=== PATIENT | female | born 1995 | race Hispanic/Latino ===

== ENCOUNTER 2016-11-15 14:59 | Emergency (ER) | payer OTHER ==
[2016-11-15] MEDS ORDERED: Lidocaine 1% 20 ML MDV INJECT ONE (15:21)
[2016-11-15] MEDS ORDERED: Diphtheria,Pertussis(Acell),Tetanus Vaccine 0.5 ML Syringe IM ONE (15:34)
--- NOTE | 2016-11-15 15:34 | EDM.PDOC ---
ED HPI GENERAL MEDICAL PROBLEM - General Chief Complaint: Laceration Stated Complaint: CUT FINGER ON LT HAND Time Seen by Provider: 11/15/16 15:20 Source of Information: Reports: Patient History Limitations: Reports: No Limitations - History of Present Illness INITIAL COMMENTS - FREE TEXT/NARRATIVE: HISTORY AND PHYSICAL: History of present illness: [Patient comes to the emergency room complaining of lacerations to her left middle finger. 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 Bled quite a bit at the time but stopped prior to coming to the emergency room. She cannot recall the date of her last tetanus shot.] She presents with her who helps to interpret. Review of systems: As per history of present illness and below otherwise all systems reviewed and negative. Past medical history: As per history of present illness and as reviewed below otherwise noncontributory. Surgical history: As per history of present illness and as reviewed below otherwise noncontributory. Social history: No reported history of drug or alcohol abuse. Family history: As per history of present illness and as reviewed below otherwise noncontributory. Physical exam: HEENT: Atraumatic, normocephalic. Extremities: 1 cm and 1-1/2 cm laceration to the distal phalanx of her left middle finger. Half centimeter laceration to the lateral aspect of her fingernail, no nail involvement. Is bleeding a small amount from the area. Neurovascular unremarkable. Neuro: Awake, alert, oriented. Motor and sensory unremarkable throughout. Exam nonfocal. Impression: [Laceration left middle finger] Plan: [Adacel given in the ER. See procedure note. Return to ER in 7 days for suture removal. Cephalexin 500 mg 3 times a day 10 days 0 refills.] Definitive disposition and diagnosis as appropriate pending reevaluation and review of above. Left Hand Pain Score (Numeric/FACES): 1 - Related Data Allergies Allergy/AdvReac Type Severity Reaction Status Date / Time No Known Allergies Allergy Verified 12/07/15 21:21 Home Meds: Home Meds . [No Known Home Meds] 12/07/15 [History] Past Medical History - Past Health History Medical/Surgical History: Denies Medical/Surgical History HEENT History: Reports: None Cardiovascular History: Reports: None Respiratory History: Reports: None Gastrointestinal History: Reports: None Genitourinary History: Reports: None [employer] History: Reports: Musculoskeletal History: Reports: None Neurological History: Reports: None Psychiatric History: Reports: None Endocrine/Metabolic History: Reports: None Hematologic History: Reports: None Immunologic History: Reports: None Oncologic (Cancer) History: Reports: None Dermatologic History: Reports: None - Infectious Disease History Infectious Disease History: Reports: None - Past Surgical History GI Surgical History: Reports: Appendectomy, Hernia, Inguinal Social & Family History - Family History Family Medical History: Noncontributory - Tobacco Use Smoking Status *Q: Never Smoker Second Hand Smoke Exposure: No - Caffeine Use Caffeine Use: Reports: Coffee - Recreational Drug Use Recreational Drug Use: No ED ROS GENERAL - Review of Systems Review Of Systems: ROS reveals no pertinent complaints other than HPI. ED EXAM, SKIN/RASH Exam: See Below ED SKIN PROCEDURES - Laceration/Wound Repair Left Middle Finger Lac/Wound length In cm: 1.5 Appearance: Subcutaneous Distal NVT: Neuro & Vascular Intact Anesthetic Type: Local Local Anesthesia - Lidocaine (Xylocaine): 1% Plain Local Anesthetic Volume: 4cc Skin Prep: Chlorhexidine (Hibiciens), Providone-Iodine (Betadine), Saline, Sterile Drape Closed with: Sutures Suture Size: 4-0 # of Sutures: 9 Suture Type: Nylon Sterile Dressing Applied: Nurse Tetanus Status Addressed: Yes Complications: No Course - Vital Signs Last Recorded V/S: Last Vital Signs Temp 96.9 F 11/15/16 15:30 Pulse 66 11/15/16 16:53 Resp 18 11/15/16 15:30 BP 111/67 11/15/16 16:53 Pulse Ox 97 11/15/16 15:30 - Orders/Labs/Meds Orders: Active Orders 24 hr Category Date Time Status Vaccines to be Administered [RC] PER UNIT ROUTINE Care 11/15/16 15:34 Active Meds: Medications Discontinued Medications Generic Name Dose Route Start Last Admin Trade Name Mauricioq PRN Reason Stop Dose Admin Bacitracin 1 dose 11/15/16 16:30 11/15/16 16:37 Bacitracin Oint 1 Gm TOP 11/15/16 16:31 1 dose ONETIME ONE Administration Diphtheria/Tetanus/Acell Pertussis 0.5 ml 11/15/16 15:34 11/15/16 15:42 Adacel IM 09/28/17 15:35 0.5 ml .ONCE ONE Administration Lidocaine HCl 20 ml 11/15/16 15:21 11/15/16 15:32 Xylocaine 1% INJECT 11/15/16 15:22 20 ml ONETIME ONE Administration Departure - Departure Time of Disposition: 16:40 Disposition: Home, Self-Care 01 Condition: Good Clinical Impression: Laceration - Discharge Information Instructions: Laceration Care, Adult, [id number] Referrals: PCP,None [Primary Care Provider] - Forms: ED Department Discharge Additional Instructions: The following information is given to patients seen in the emergency department who are being discharged to home. This information is to outline your options for follow-up care. We provide all patients seen in our emergency department with a follow-up referral. The need for follow-up, as well as the timing and circumstances, are variable depending upon the specifics of your emergency department visit. If you don't have a primary care physician on staff, we will provide you with a referral. We always advise you to contact your personal physician following an emergency department visit to inform them of the circumstance of the visit and for follow-up with them and/or the need for any referrals to a consulting specialist. The emergency department will also refer you to a specialist when appropriate. This referral assures that you have the opportunity for follow-up care with a specialist. All of these measure are taken in an effort to provide you with optimal care, which includes your follow-up. Under all circumstances we always encourage you to contact your private physician who remains a resource for coordinating your care. When calling for follow-up care, please make the office aware that this follow-up is from your recent emergency room visit. If for any reason you are refused follow-up, please contact the [facility] emergency department at and asked to speak to the emergency department charge nurse. [facility] [address] [place] [id number] Follow-up with your primary care provider in 48-72 hours. Take antibiotic as prescribed. Return to ER as needed as discussed. - My Orders Last 24 Hours: My Active Orders 11/15/16 15:34 Vaccines to be Administered [RC] PER UNIT ROUTINE - Assessment/Plan Last 24 Hours: My Active Orders 11/15/16 15:34 Vaccines to be Administered [RC] PER UNIT ROUTINE
[2016-11-15] MEDS ORDERED: Bacitracin Oint 1 GM U/D Packet TOP ONE (16:30)
[2016-11-15 16:57] VITALS: BP 111/67
== END 2016-11-15 16:53 | disposition home or self-care (01) ==
LOC: MW.ED 14:59
DX: S61.213A Laceration without foreign body of left middle finger without damage to nail, initial encounter (principal); Z23 Encounter for immunization; W29.0XXA Contact with powered kitchen appliance, initial encounter; Y92.511 Restaurant or cafe as the place of occurrence of the external cause
CPT/HCPCS: 12001; 90471; 90715; 99283; 99283-25

== ENCOUNTER 2016-11-22 18:51 | Emergency (ER) | payer MEDICAID, OTHER ==
[2016-11-22 20:36] VITALS: BP 124/65
== END 2016-11-22 19:20 | disposition left against medical advice (07) ==
LOC: MW.ED 18:51
DX: Z53.21 Procedure and treatment not carried out due to patient leaving prior to being seen by health care provider (principal)

== ENCOUNTER 2018-05-12 15:10 | Emergency (ER) | payer SELFPAY | END 2018-05-12 15:51 | disposition left against medical advice (07) | LOC: MW.ED 15:10 | DX: Z53.21 Procedure and treatment not carried out due to patient leaving prior to being seen by health care provider (principal) ==

== ENCOUNTER 2020-12-07 00:19 | Inpatient (IN) | payer OTHER ==
[2020-12-07] MEDS ORDERED: Carboprost Tromethamine 250 MCG/1 ML Amp IM PRN (00:25)
[2020-12-07] MEDS ORDERED: Tranexamic Acid 1,000 MG in Sodium Chloride 0.9% 100 ML IV PRN (00:25)
[2020-12-07] MEDS ORDERED: Water For Irrigation,Sterile 1,000 ML Container IRR PRN (00:25)
[2020-12-07] MEDS ORDERED: Terbutaline 1 MG/ML SDV SUBCUT PRN (00:25)
[2020-12-07] MEDS ORDERED: Sodium Chloride 0.9% 10 ML SDV IV PRN (00:25)
[2020-12-07] MEDS ORDERED: Sodium Chloride 0.9% 10 ML Syringe FLUSH PRN (00:25)
[2020-12-07] MEDS ORDERED: Nalbuphine 10 MG/1 ML Vial IVPUSH PRN (00:25)
[2020-12-07] MEDS ORDERED: Methylergonovine 0.2 MG/1 ML Amp IM PRN (00:25)
[2020-12-07] MEDS ORDERED: Butorphanol 1 MG/ML SDV IVPUSH PRN (00:25)
[2020-12-07] MEDS ORDERED: Lidocaine 1% 50 ML MDV INJECT PRN (00:25)
[2020-12-07] MEDS ORDERED: Ondansetron 4 MG/2 ML SDV IVPUSH PRN (00:25)
[2020-12-07] MEDS ORDERED: Sodium Chloride 0.9% 2.5 ML Syringe FLUSH PRN (00:25)
[2020-12-07] MEDS ORDERED: Misoprostol 200 MCG Tab PO PRN (00:25)
[2020-12-07] MEDS ORDERED: Oxytocin/0.9 % Sodium Chloride 30 UNIT/500 ML BAG IV SCH ×2 (00:30)
[2020-12-07] MEDS: Lactated Ringers 1,000 ML IV SCH ×4 (00:52→21:30)
[2020-12-07] MEDS ORDERED: Misoprostol 25 MCG (1/4 of 100 MCG) Tab PO PRN (01:00)
[2020-12-07] MEDS ORDERED: Misoprostol 25 MCG (1/4 of 100 MCG) Tab VAG PRN ×2 (01:00→05:00)
[2020-12-07] MEDS: Misoprostol 25 MCG (1/4 of 100 MCG) Tab PO PRN ×2 (08:37→12:35)
--- NOTE | 2020-12-07 08:55 | PCM.LDHP ---
L&D History of Present Illness - General Date of Service: 12/07/20 Admit Problem/Dx: Patient Status Order with Admit Dx/Problem 12/07/20 00:25 Patient Status [ADT] Routine Admission Diagnosis/Problem Admission Diagnosis/Problem 12/07/20 08:50 Nidia is a 25 yo at 39+6 weeks gestation (TREVOR(LMP) 12/08/2020) that presents to L&D today for elective induction of labor. Patient seen in office 12/06/2020, RBAs of IOL and mode of cervical ripening (cytotec) discussed in office, consents signed. Reports adequate movement. Denies painful contractions, LOF, joe vaginal bleeding at this time. B pos, RI, GBS neg. EFW via [place] 7+ lbs. Pertinent medical history includes: h/o GDM in prior . NKDA. Medications: PNV daily, ondansetron PRN. Patient has no other complaints or concerns at this time. Source of Information: Patient History Limitations: Reports: No Limitations - History of Present Illness Improves with: Reports: None Worsens with: Reports: None Associated Symptoms: Reports: N - Related Data Allergies/Adverse Reactions: Allergies Allergy/AdvReac Type Severity Reaction Status Date / Time No Known Allergies Allergy Verified 12/07/20 00:24 Home Medications: Home Meds . [No Known Home Meds] 12/07/15 [History] Past Medical History - Past Health History Medical/Surgical History: Denies Medical/Surgical History HEENT History: Reports: None Cardiovascular History: Reports: None Respiratory History: Reports: None Gastrointestinal History: Reports: None Genitourinary History: Reports: None [employer] History: Reports: : 2 Para: 1 Musculoskeletal History: Reports: None Neurological History: Reports: None Psychiatric History: Reports: Depression, Other (See Below) Other Psychiatric History: hx of cutting self Endocrine/Metabolic History: Reports: Diabetes, Gestational (Prior ), Obesity/BMI 30+, Other (See Below) Other Endocrine/Metabolic History: GDM with first Hematologic History: Reports: None Immunologic History: Reports: None Oncologic (Cancer) History: Reports: None Dermatologic History: Reports: None - Infectious Disease History Infectious Disease History: Reports: None - Past Surgical History Head Surgeries/Procedures: Reports: None HEENT Surgical History: Reports: None Cardiovascular Surgical History: Reports: None GI Surgical History: Reports: Appendectomy, Hernia, Inguinal Female Surgical History: Reports: None Endocrine Surgical History: Reports: None Social & Family History - Family History Family Medical History: No Pertinent Family History - Tobacco Use Tobacco Use Status *Q: Never Tobacco User Second Hand Smoke Exposure: No - Caffeine Use Caffeine Use: Reports: Coffee, Tea - Alcohol Use Alcohol Use History: No - Recreational Drug Use Recreational Drug Use: No H&P Review of Systems - Review of Systems: Review Of Systems: Comprehensive ROS is negative, except as noted in HPI. General: Reports: No Symptoms HEENT: Reports: No Symptoms Pulmonary: Reports: No Symptoms Cardiovascular: Reports: No Symptoms Gastrointestinal: Reports: No Symptoms Genitourinary: Reports: No Symptoms Musculoskeletal: Reports: No Symptoms Skin: Reports: No Symptoms Psychiatric: Reports: No Symptoms Neurological: Reports: No Symptoms Hematologic/Lymphatic: Reports: No Symptoms Immunologic: Reports: No Symptoms L&D Exam - Exam Exam: See Below - Vital Signs Vital Signs: Last Vital Signs Temp 98.2 F 12/07/20 07:29 Pulse Resp 18 12/07/20 07:29 BP Pulse Ox VSS, afebrile. See flowsheet. Weight: 236 lb - OB Specific Fundal Height In cm: 39 Contraction Duration (sec): 40-60 Contraction Frequency (min): 2-4 Contraction Intensity: Mild Movement: Active Heart Tones: Present Heart Tones per Min: 120 Heart Rate (FHR) Variability: Moderate (6-25 bpm) Presentation: Vertex - Lezama Score Lezama Score Cervix Position: Posterior Lezama Score Consistency: Medium Lezama Score Effacement: 51-70% Lezama Score Dilation: 1-2 cm Lezama Score Infant's Station: -2 Lezama Score Total: 5 - Exam General: Alert, Oriented, Cooperative HEENT: Conjunctiva Clear, Hearing Intact, Mucosa Moist & Forgan, Nares Patent, PERRLA Neck: Supple, Trachea Midline Lungs: Clear to Auscultation, Normal Respiratory Effort Cardiovascular: Regular Rate, Regular Rhythm GI/Abdominal Exam: Normal Bowel Sounds, Soft, Non-Tender, No Organomegaly, No Distention Rectal Exam: Deferred Genitourinary: Normal external exam, Normal bimanual exam, Enlarged uterus Back Exam: Normal Inspection, Full Range of Motion Extremities: Normal Inspection, Normal Range of Motion, Non-Tender, No Pedal Edema, Normal Capillary Refill Skin: Warm, Dry, Intact Neurological: Cranial Nerves Intact, Reflexes Equal Bilateral Psychiatric: Alert, Normal Affect, Normal Mood - Patient Data Lab Results Last 24 hrs: Laboratory Results - last 24 hr 12/07/20 12/07/20 Range/Units 01:53 01:53 WBC 7.90 (4.0-11.0) K/uL RBC 3.66 L (4.30-5.90) M/uL Hgb 11.2 L (12.0-16.0) g/dL Hct 32.5 L (36.0-46.0) % MCV 88.8 (80.0-98.0) fL MCH 30.6 (27.0-32.0) pg MCHC 34.5 (31.0-37.0) g/dL RDW Std Deviation 45.5 (28.0-62.0) fl RDW Coeff of [place] 14 (11.0-15.0) % Plt Count 177 (150-400) K/uL MPV 10.20 (7.40-12.00) fL Nucleated RBC % 0.0 /100WBC Nucleated RBCs # 0 K/uL Blood Type B POSITIVE Antibody Screen NEGATIVE Result Diagrams: 12/07/20 01:53 - Problem List (1) Encounter for elective induction of labor SNOMED Code(s): 008391241 ICD Code: Z34.90 - ENCNTR FOR SUPRVSN OF NORMAL , UNSP, UNSP TRIMESTER Status: Acute Priority: High Current Visit: Yes (2) 39 weeks gestation of SNOMED Code(s): 53416947 ICD Code: Z3A.39 - 39 WEEKS GESTATION OF Status: Acute Priority: High Current Visit: Yes Problem List Initiated/Reviewed/Updated: Yes Orders Last 24hrs: Active Orders 24 hr Category Date Time Status Patient Status [ADT] Routine ADT 12/07/20 00:25 Active Bedrest Bathroom Privileges [RC] ASDIRECTED Care 12/07/20 00:25 Active Communication Order [RC] ASDIRECTED Care 12/07/20 00:25 Active Communication Order [RC] ASDIRECTED Care 12/07/20 00:25 Active Communication Order [RC] ASDIRECTED Care 12/07/20 00:25 Active Heart Tones [RC] CONTINUOUS Care 12/07/20 00:25 Active Non Stress Test [RC] PER UNIT ROUTINE Care 12/07/20 00:25 Active May Shower [RC] ASDIRECTED Care 12/07/20 00:25 Active Notify Provider [RC] PRN Care 12/07/20 00:25 Active Notify Provider [RC] PRN Care 12/07/20 00:25 Active Notify Provider [RC] PRN Care 12/07/20 00:25 Active Notify Provider [RC] STAT Care 12/07/20 00:25 Active Oxygen Therapy [RC] ASDIRECTED Care 12/07/20 00:25 Active Peripheral IV Care [RC] PRN Care 12/07/20 00:25 Active Up ad [place] [RC] ASDIRECTED Care 12/07/20 00:25 Active Vaccine to be Administered/Admin Charge [RC] ASDIRECTED Care 12/07/20 02:08 Active Vaginal Exam [RC] PRN Care 12/07/20 00:25 Active Vaginal Exam [RC] PRN Care 12/07/20 00:25 Active Vital Signs [RC] PER UNIT ROUTINE Care 12/07/20 00:25 Active RPR (SYPHILIS SERO) W/ RFLX [REF] Routine Lab 12/07/20 01:53 Received Butorphanol [Stadol] Med 12/07/20 00:25 Active 1 mg IVPUSH Q1H PRN Carboprost Tromethamine [Hemabate DS] Med 12/07/20 00:25 Active 250 mcg IM ASDIRECTED PRN FLU Vacc [id number](6MOS UP)/PF [Fluzone Quad Med 12/07/20 09:00 Once Syringe] 60 mcg IM .ONCE ONE Lactated Ringers [Ringers, Lactated] 1,000 ml Med 12/07/20 00:30 Active IV ASDIRECTED Lidocaine 1% [Xylocaine 1%] Med 12/07/20 00:25 Active 50 ml INJECT ONETIME PRN Methylergonovine [Methergine] Med 12/07/20 00:25 Active 0.2 mg IM ASDIRECTED PRN Nalbuphine [Nubain] Med 12/07/20 00:25 Active 10 mg IVPUSH Q1H PRN Ondansetron [Zofran] Med 12/07/20 00:25 Active 4 mg IVPUSH Q6H PRN Oxytocin/0.9 % Sodium Chloride [Oxytocin 30 Unit in NS Med 12/07/20 00:30 Active 0.9% 500 ML Premix] 30 unit in 500 ml IV TITRATE Oxytocin/0.9 % Sodium Chloride [Oxytocin 30 Unit in NS Med 12/07/20 00:30 Active 0.9% 500 ML Premix] 30 unit in 500 ml IV TITRATE Sodium Chloride 0.9% [Normal Saline] Med 12/07/20 00:25 Active 10 ml IV ASDIRECTED PRN Sodium Chloride 0.9% [Saline Flush] Med 12/07/20 00:25 Active 10 ml FLUSH ASDIRECTED PRN Sodium Chloride 0.9% [Saline Flush] Med 12/07/20 00:25 Active 2.5 ml FLUSH ASDIRECTED PRN Terbutaline [Brethine] Med 12/07/20 00:25 Active 0.25 mg SUBCUT ASDIRECTED PRN Tranexamic Acid [Cyklokapron] 1,000 mg Med 12/07/20 00:25 Active Sodium Chloride 0.9% [Normal Saline] 100 ml IV ONETIME Water For Irrigation,Sterile [Sterile Water for Med 12/07/20 00:25 Active Irrigation] 1,000 ml IRR ASDIRECTED PRN miSOPROStoL [Cytotec] Med 12/07/20 00:25 Active 200 mcg PO ONETIME PRN miSOPROStoL [Cytotec] Med 12/07/20 01:00 Active 25 mcg PO ONETIME PRN miSOPROStoL [Cytotec] Med 12/07/20 05:00 Active 25 mcg PO Q4H PRN miSOPROStoL [Cytotec] Med 12/07/20 01:00 Active 25 mcg VAG ONETIME PRN miSOPROStoL [Cytotec] Med 12/07/20 05:00 Active 25 mcg VAG Q4H PRN Scalp Electrode [WOMSER] Per Unit Routine Oth 12/07/20 00:25 Ordered Medication Administration Instruction [OM.PC] Q3H Oth 12/07/20 00:30 Ordered Peripheral IV Insertion Adult [OM.PC] Routine Oth 12/07/20 00:25 Ordered Resuscitation Status Routine Resus Stat 12/07/20 00:25 Ordered Medication Orders Butorphanol Tartrate (Butorphanol 1 Mg/Ml Sdv) 1 mg IVPUSH Q1H PRN PRN Reason: Pain (severe 7-10) Carboprost Tromethamine (Carboprost Tromethamine 250 Mcg/1 Ml Amp) 250 mcg IM ASDIRECTED PRN PRN Reason: Post Hemorrhage Oxytocin/Sodium Chloride (Oxytocin 30 Unit In Ns 0.9% 500 Ml Premix) 30 unit in 500 mls @ 999 mls/hr IV TITRATE EFE Tranexamic Acid 1,000 mg/ (Sodium Chloride) 110 mls @ 660 mls/hr IV ONETIME PRN PRN Reason: Bleeding Oxytocin/Sodium Chloride (Oxytocin 30 Unit In Ns 0.9% 500 Ml Premix) 30 unit in 500 mls @ 2 mls/hr IV TITRATE EFE; Protocol Lactated Ringer's (Ringers, Lactated) 1,000 mls @ 150 mls/hr IV ASDIRECTED EFE Last Admin: 12/07/20 08:11 Dose: 150 mls/hr Documented by: [email or web address] Infusion: 12/07/20 07:33 Dose: 150 mls/hr Documented by: Admin: 12/07/20 00:52 Dose: 150 mls/hr Documented by: ROCKY Influenza Virus Vaccine (Flu Vacc [id number](6mos Up)/Pf 60 Mcg/0.5 Ml Syringe) 60 mcg IM .ONCE ONE Stop: 12/07/20 09:01 Lidocaine HCl (Lidocaine 1% 50 Ml Mdv) 50 ml INJECT ONETIME PRN PRN Reason: Laceration repair Methylergonovine Maleate (Methylergonovine 0.2 Mg/1 Ml Amp) 0.2 mg IM ASDIRECTED PRN PRN Reason: Post Hemorrhage Misoprostol (Misoprostol 200 Mcg Tab) 200 mcg PO ONETIME PRN PRN Reason: Post Hemorrhage Misoprostol (Misoprostol 25 Mcg (1/4 Of 100 Mcg) Tab) 25 mcg VAG ONETIME PRN PRN Reason: Cervical Ripening Last Admin: 12/07/20 01:05 Dose: 25 mcg Documented by: RCOKY Misoprostol (Misoprostol 25 Mcg (1/4 Of 100 Mcg) Tab) 25 mcg VAG Q4H PRN PRN Reason: Cervical Ripening Misoprostol (Misoprostol 25 Mcg (1/4 Of 100 Mcg) Tab) 25 mcg PO ONETIME PRN PRN Reason: Cervical Ripening Last Admin: 12/07/20 01:06 Dose: 25 mcg Documented by: ROCKY Misoprostol (Misoprostol 25 Mcg (1/4 Of 100 Mcg) Tab) 25 mcg PO Q4H PRN PRN Reason: Cervical Ripening Last Admin: 12/07/20 08:37 Dose: 25 mcg Documented by: ZEINA Nalbuphine HCl (Nalbuphine 10 Mg/1 Ml Vial) 10 mg IVPUSH Q1H PRN PRN Reason: Pain (severe 7-10) Ondansetron HCl (Ondansetron 4 Mg/2 Ml Sdv) 4 mg IVPUSH Q6H PRN PRN Reason: Nausea/Vomiting Sodium Chloride (Sodium Chloride 0.9% 10 Ml Syringe) 10 ml FLUSH ASDIRECTED PRN PRN Reason: Keep Vein Open Sodium Chloride (Sodium Chloride 0.9% 2.5 Ml Syringe) 2.5 ml FLUSH ASDIRECTED PRN PRN Reason: Keep Vein Open Sodium Chloride (Sodium Chloride 0.9% 10 Ml Sdv) 10 ml IV ASDIRECTED PRN PRN Reason: IV Use Sterile Water (Water For Irrigation,Sterile 1,000 Ml Container) 1,000 ml IRR ASDIRECTED PRN PRN Reason: delivery Terbutaline Sulfate (Terbutaline 1 Mg/Ml Sdv) 0.25 mg SUBCUT ASDIRECTED PRN PRN Reason: Tacysystole Assessment/Plan Comment:: Admit for observation for elective IOL in anticipation of of term viable . FHR Cat I. Mild contractions noted. Expectant management, reassess c ervical dilation ~1200 pm. If no change has been make, may administer cytotec per orders. May ambulate and hydrotherapy as desired after reactive NST achieved; repeat NST per orders. May receive epidural if desired between 4+ cm. See new orders. Dr. Pierre notified and agreeable with POC.
[2020-12-07] MEDS ORDERED: Ropivacaine HCl/PF 200 ML ONE (19:57)
--- NOTE | 2020-12-07 20:11 | PCM.PREANE ---
Preanesthetic Assessment - Anesthesia/Transfusion/Family Hx Anesthesia History: Prior Anesthesia Without Reaction Transfusion History: No Prior Transfusion(s) - Review of Systems General: No Symptoms Pulmonary: No Symptoms Cardiovascular: No Symptoms Gastrointestinal: No Symptoms Neurological: No Symptoms Other: Reports: None - Physical Assessment NPO Status Date: 12/07/20 NPO Status Time: 11:00 Vital Signs: Last Vital Signs Temp 98.2 F 12/07/20 07:29 Pulse Resp 18 12/07/20 07:29 BP Pulse Ox Height: 5 ft 9 in Weight: 236 lb ASA Class: 2 Mental Status: Alert & Oriented x3 Airway Class: Mallampati = 2 Dentition: Reports: Normal Dentition Thyro-Mental Finger Breadths: 3 Mouth Opening Finger Breadths: 3 ROM/Head Extension: Full Lungs: Clear to Auscultation, Normal Respiratory Effort Cardiovascular: Regular Rate, Regular Rhythm - Lab Values: Laboratory Last Values WBC 7.90 K/uL (4.0-11.0) 12/07/20 01:53 RBC 3.66 M/uL (4.30-5.90) L 12/07/20 01:53 Hgb 11.2 g/dL (12.0-16.0) L 12/07/20 01:53 Hct 32.5 % (36.0-46.0) L 12/07/20 01:53 MCV 88.8 fL (80.0-98.0) 12/07/20 01:53 MCH 30.6 pg (27.0-32.0) 12/07/20 01:53 MCHC 34.5 g/dL (31.0-37.0) 12/07/20 01:53 RDW Std Deviation 45.5 fl (28.0-62.0) 12/07/20 01:53 RDW Coeff of [place] 14 % (11.0-15.0) 12/07/20 01:53 Plt Count 177 K/uL (150-400) 12/07/20 01:53 MPV 10.20 fL (7.40-12.00) 12/07/20 01:53 Nucleated RBC % 0.0 /100WBC 12/07/20 01:53 Nucleated RBCs # 0 K/uL 12/07/20 01:53 Blood Type B POSITIVE 12/07/20 01:53 Antibody Screen NEGATIVE 12/07/20 01:53 - Allergies Allergies/Adverse Reactions: Allergies Allergy/AdvReac Type Severity Reaction Status Date / Time No Known Allergies Allergy Verified 12/07/20 00:24 - Acknowledgements Anesthesia Type Planned: Epidural Pt an Appropriate Candidate for the Planned Anesthesia: Yes Alternatives and Risks of Anesthesia Discussed w Pt/Guardian: Yes Pt/Guardian Understands and Agrees with Anesthesia Plan: Yes PreAnesthesia Questionnaire - Past Health History Medical/Surgical History: Denies Medical/Surgical History HEENT History: Reports: None Cardiovascular History: Reports: None Respiratory History: Reports: None Gastrointestinal History: Reports: None Genitourinary History: Reports: None 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: Musculoskeletal History: Reports: None Neurological History: Reports: None Psychiatric History: Reports: Depression, Other (See Below) Other Psychiatric History: hx of cutting self Endocrine/Metabolic History: Reports: Diabetes, Gestational (Prior ), Obesity/BMI 30+, Other (See Below) Other Endocrine/Metabolic History: GDM with first Hematologic History: Reports: None Immunologic History: Reports: None Oncologic (Cancer) History: Reports: None Dermatologic History: Reports: None - Infectious Disease History Infectious Disease History: Reports: None - Past Surgical History Head Surgeries/Procedures: Reports: None HEENT Surgical History: Reports: None Cardiovascular Surgical History: Reports: None GI Surgical History: Reports: Appendectomy, Hernia, Inguinal Female Surgical History: Reports: None Endocrine Surgical History: Reports: None - SUBSTANCE USE Tobacco Use Status *Q: Never Tobacco User Second Hand Smoke Exposure: No Recreational Drug Use History: No - HOME MEDS Home Medications: Home Meds . [No Known Home Meds] 12/07/15 [History] - CURRENT (IN HOUSE) MEDS Current Meds: Current Medications Butorphanol Tartrate (Butorphanol 1 Mg/Ml Sdv) 1 mg IVPUSH Q1H PRN PRN Reason: Pain (severe 7-10) Carboprost Tromethamine (Carboprost Tromethamine 250 Mcg/1 Ml Amp) 250 mcg IM ASDIRECTED PRN PRN Reason: Post Hemorrhage Oxytocin/Sodium Chloride (Oxytocin 30 Unit In Ns 0.9% 500 Ml Premix) 30 unit in 500 mls @ 999 mls/hr IV TITRATE EFE Tranexamic Acid 1,000 mg/ (Sodium Chloride) 110 mls @ 660 mls/hr IV ONETIME PRN PRN Reason: Bleeding Oxytocin/Sodium Chloride (Oxytocin 30 Unit In Ns 0.9% 500 Ml Premix) 30 unit in 500 mls @ 2 mls/hr IV TITRATE EFE; Protocol Last Titration: 12/07/20 18:04 Dose: 6 munits/min, 6 mls/hr Documented by: Lactated Ringer's (Ringers, Lactated) 1,000 mls @ 150 mls/hr IV ASDIRECTED EFE Last Admin: 12/07/20 08:11 Dose: 150 mls/hr Documented by: Lidocaine HCl (Lidocaine 1% 50 Ml Mdv) 50 ml INJECT ONETIME PRN PRN Reason: Laceration repair Methylergonovine Maleate (Methylergonovine 0.2 Mg/1 Ml Amp) 0.2 mg IM ASDIRECTED PRN PRN Reason: Post Hemorrhage Misoprostol (Misoprostol 200 Mcg Tab) 200 mcg PO ONETIME PRN PRN Reason: Post Hemorrhage Misoprostol (Misoprostol 25 Mcg (1/4 Of 100 Mcg) Tab) 25 mcg VAG ONETIME PRN PRN Reason: Cervical Ripening Last Admin: 12/07/20 01:05 Dose: 25 mcg Documented by: Misoprostol (Misoprostol 25 Mcg (1/4 Of 100 Mcg) Tab) 25 mcg VAG Q4H PRN PRN Reason: Cervical Ripening Last Admin: 12/07/20 12:35 Dose: 25 mcg Documented by: Misoprostol (Misoprostol 25 Mcg (1/4 Of 100 Mcg) Tab) 25 mcg PO ONETIME PRN PRN Reason: Cervical Ripening Last Admin: 12/07/20 01:06 Dose: 25 mcg Documented by: Misoprostol (Misoprostol 25 Mcg (1/4 Of 100 Mcg) Tab) 25 mcg PO Q4H PRN PRN Reason: Cervical Ripening Last Admin: 12/07/20 12:35 Dose: 25 mcg Documented by: Nalbuphine HCl (Nalbuphine 10 Mg/1 Ml Vial) 10 mg IVPUSH Q1H PRN PRN Reason: Pain (severe 7-10) Ondansetron HCl (Ondansetron 4 Mg/2 Ml Sdv) 4 mg IVPUSH Q6H PRN PRN Reason: Nausea/Vomiting Sodium Chloride (Sodium Chloride 0.9% 10 Ml Syringe) 10 ml FLUSH ASDIRECTED PRN PRN Reason: Keep Vein Open Sodium Chloride (Sodium Chloride 0.9% 2.5 Ml Syringe) 2.5 ml FLUSH ASDIRECTED PRN PRN Reason: Keep Vein Open Sodium Chloride (Sodium Chloride 0.9% 10 Ml Sdv) 10 ml IV ASDIRECTED PRN PRN Reason: IV Use Sterile Water (Water For Irrigation,Sterile 1,000 Ml Container) 1,000 ml IRR ASDIRECTED PRN PRN Reason: delivery Terbutaline Sulfate (Terbutaline 1 Mg/Ml Sdv) 0.25 mg SUBCUT ASDIRECTED PRN PRN Reason: Tacysystole Discontinued Medications Ropivacaine (Naropin 0.2%) Confirm Administered Dose 200 mls @ as directed .ROUTE .[facility]-MED ONE Stop: 12/07/20 19:58 Influenza Virus Vaccine (Flu Vacc [id number](6mos Up)/Pf 60 Mcg/0.5 Ml Syringe) 60 mcg IM .ONCE ONE Stop: 12/07/20 09:01
--- NOTE | 2020-12-07 20:11 | PCM.POSTAN ---
POST ANESTHESIA ASSESSMENT - MENTAL STATUS Mental Status: Alert, Oriented - VITAL SIGNS Vital Signs: Last Vital Signs Temp 98.2 F 12/07/20 07:29 Pulse Resp 18 12/07/20 07:29 BP Pulse Ox - RESPIRATORY Respiratory Status: Respiratory Rate WNL, Airway Patent, O2 Saturation Stable - CARDIOVASCULAR CV Status: Pulse Rate WNL, Blood Pressure Stable - GASTROINTESTINAL GI Status: No Symptoms - POST OP HYDRATION Hydration Status: Adequate & Stable
--- NOTE | 2020-12-07 20:14 | PCM.SN.2 ---
Time Documentation - Pre-Procedure Checklist Attending Provider Aware: Yes Chart Reviewed: Yes Consent Signed: Yes Labs Reviewed: Yes VS/FHR Reviewed: Yes Patient Identification Confirmation Method: Reports: Chart Barcode, Chart Visual, ID Band Visual, Verbal Patient Pt an Appropriate Candidate for the Planned Anesthesia: Yes Alternatives and Risks of Anesthesia Discussed w Pt/Guardian: Yes - Procedure Procedure Start Date: 12/07/20 Procedure Start Time: 19:[address]: Reports: Blood Pressure, Heart Rate, SPO2 Functional IV: Yes Safety Measures: Reports: Patient Identified, Procedure Verified, Site Verified, Procedure Time Out Patient Position: Reports: Sitting Prep: Reports: Betadine x3 Local Anesthetic: Reports: Intradermal Wheal w Lidocaine 1% Regional Placement Level: Reports: L2-3 Needle: Reports: 17 g Touhy Approach: Reports: Midline Technique: Reports: FELIPE Glass Syringe Parasthesia: Reports: None Fluid Obtained: Reports: None Test Dose Medication: Reports: Lidocaine 1.5% w Epinephrine 1:200,000 Test Dose Response: Reports: Negative Continuous Infusion Start Time: 20:05 Continuous Infusion Medication: 0.2% Naropin Continuous Infusion Rate: 18 Continuous Infusion PCS Bolus Option: 4 Continuous Infusion Lockout Dose (cc/hr): 30 Patient Position Post Placement: Reports: Supline/JONNY Post-procedure Pain Level: 1 VS and FHR Monitored in Unit Post Placement: Yes Procedure End Date: 12/07/20 Procedure End Time: 20:40
[2020-12-07] MEDS ORDERED: ePHEDrine 50 MG/ML SDV IVPUSH PRN ×2 (20:24)
[2020-12-07] MEDS ORDERED: Ropivacaine/PF 400 MG/200 ML PCA EPIDUR SCH (20:30)
--- NOTE | 2020-12-08 03:21 | PCM.DEL ---
L & D Note - General Info Date of Service: 12/08/20 Mother's Due Date: 12/08/20 - Delivery Note Labor: Augmented by Oxytocin Cervical Ripening Method: Prostaglandin E2 Delivery Outcome: Livebirth Infant Delivery Method: Spontaneous Vaginal Delivery-Single Presentation: Vertex Nuchal Cord: None Anesthesia Type: Epidural Amniotic Fluid Description: Meconium Stained Laceration: 1st Degree Suture type: Vicryl Suture size: 4-0 Placenta: Intact, Spontaneous Cord: 3 Vessels Estimated Blood Loss: 250 : Stimulated Score 1 min: 8 Score 5 min: 9 Delivery Comments (Free Text/Narrative):: Nidia is a 25 yo G2 now P2002 s/p uncomplicated VD at 40 weeks gestation. of a live female, 7lb 7oz and Apgars 8/9. Delivered RYANNE, no nuchal cord, Meconium-stained fluid. Vertex and body delivered without difficulty. Cord clamped and cut. Nose and mouth bulb suctioned; Baby placed on Mom's abdomen. Placenta delivered spontaneously, intact. Fundus firm, minimal bleeding. Placenta appears intact with 3 vessel cord. Perineum and vagina inspected small 1st degree vagina laceration repaired with 4-0 suture suture in the usual fashion. EBL 250cc. Hemostasis. Patient tolerated procedure well, recovering in LDR. by her side. Induction Criteria - Lezama Score Lezama Score Dilation: 1-2 cm Lezama Score Effacement: 0-30% Lezama Score 's Station: -3 Lezama Score Consistency: Firm Lezama Score Cervix Position: Posterior Lezama Score Total: 1 Lezama Score Presenting Part: Reports: Cephalic - Induction Gestational Age >/= 39 wks: Yes Estimated Pelvis: Reports: Adequate Reassuring Monitoring Strip: Yes Absence of Tachy Systole: Yes - Augmentation Estimated Pelvis: Reports: Adequate Weight Estimated:: Reports: AGA Reassuring Monitoring Strip: Yes Absence of Tachy Systole: Yes - General Info Date of Service: 12/08/20 Admission Dx/Problem (Free Text): Patient Status Order with Admit Dx/Problem 12/07/20 00:25 Patient Status [ADT] Routine Admission Diagnosis/Problem Admission Diagnosis/Problem 12/07/20 08:50 Nidia is a 25 yo at 39+6 weeks gestation (TREVOR(LMP) 12/08/2020) that presents to L&D today for elective induction of labor. Patient seen in office 12/06/2020, RBAs of IOL and mode of cervical ripening (cytotec) discussed in office, consents signed. Reports adequate movement. Denies painful contractions, LOF, joe vaginal bleeding at this time. B pos, RI, GBS neg. EFW via [place] 7+ lbs. Pertinent medical history includes: h/o GDM in prior . NKDA. Medications: PNV daily, ondansetron PRN. Patient has no other complaints or concerns at this time. Subjective Update: Nidia is a 25 yo G2 now P2002 s/p uncomplicated VD at 40 weeks gestation (TREVOR(LMP) 12/08/2020) after elective induction of labor. Mom and baby are recovering well Functional Status: Reports: Pain Controlled - Review of Systems General: Reports: No Symptoms HEENT: Reports: No Symptoms Pulmonary: Reports: No Symptoms Cardiovascular: Reports: No Symptoms Gastrointestinal: Reports: No Symptoms Genitourinary: Reports: No Symptoms Musculoskeletal: Reports: No Symptoms Skin: Reports: No Symptoms Neurological: Reports: No Symptoms Psychiatric: Reports: No Symptoms - Patient Data Vitals - Most Recent: Last Vital Signs Temp 98.2 F 12/07/20 07:29 Pulse Resp 18 12/07/20 07:29 BP Pulse Ox Weight - Most Recent: 107.048 kg Med Orders - Current: Current Medications Butorphanol Tartrate (Butorphanol 1 Mg/Ml Sdv) 1 mg IVPUSH Q1H PRN PRN Reason: Pain (severe 7-10) Carboprost Tromethamine (Carboprost Tromethamine 250 Mcg/1 Ml Amp) 250 mcg IM ASDIRECTED PRN PRN Reason: Post Hemorrhage Ephedrine Sulfate (Ephedrine 50 Mg/Ml Sdv) 10 mg IVPUSH Q5M PRN PRN Reason: Hypotension Ephedrine Sulfate (Ephedrine 50 Mg/Ml Sdv) 10 mg IVPUSH Q1M PRN PRN Reason: Hypotension Oxytocin/Sodium Chloride (Oxytocin 30 Unit In Ns 0.9% 500 Ml Premix) 30 unit in 500 mls @ 999 mls/hr IV TITRATE EFE Tranexamic Acid 1,000 mg/ (Sodium Chloride) 110 mls @ 660 mls/hr IV ONETIME PRN PRN Reason: Bleeding Oxytocin/Sodium Chloride (Oxytocin 30 Unit In Ns 0.9% 500 Ml Premix) 30 unit in 500 mls @ 2 mls/hr IV TITRATE EFE; Protocol Last Titration: 12/08/20 01:04 Dose: 8 munits/min, 8 mls/hr Documented by: Lactated Ringer's (Ringers, Lactated) 1,000 mls @ 150 mls/hr IV ASDIRECTED EFE Last Admin: 12/07/20 21:30 Dose: 150 mls/hr Documented by: Lidocaine HCl (Lidocaine 1% 50 Ml Mdv) 50 ml INJECT ONETIME PRN PRN Reason: Laceration repair Methylergonovine Maleate (Methylergonovine 0.2 Mg/1 Ml Amp) 0.2 mg IM ASDIRECTED PRN PRN Reason: Post Hemorrhage Miscellaneous Medication (Phenylephrine Hcl In 0.9% Nacl 1 Mg/10 Ml Syringe) 0.1 mg IVPUSH Q1M PRN PRN Reason: Hypotension Misoprostol (Misoprostol 200 Mcg Tab) 200 mcg PO ONETIME PRN PRN Reason: Post Hemorrhage Misoprostol (Misoprostol 25 Mcg (1/4 Of 100 Mcg) Tab) 25 mcg VAG ONETIME PRN PRN Reason: Cervical Ripening Last Admin: 12/07/20 01:05 Dose: 25 mcg Documented by: Misoprostol (Misoprostol 25 Mcg (1/4 Of 100 Mcg) Tab) 25 mcg VAG Q4H PRN PRN Reason: Cervical Ripening Last Admin: 12/07/20 12:35 Dose: 25 mcg Documented by: Misoprostol (Misoprostol 25 Mcg (1/4 Of 100 Mcg) Tab) 25 mcg PO ONETIME PRN PRN Reason: Cervical Ripening Last Admin: 12/07/20 01:06 Dose: 25 mcg Documented by: Misoprostol (Misoprostol 25 Mcg (1/4 Of 100 Mcg) Tab) 25 mcg PO Q4H PRN PRN Reason: Cervical Ripening Last Admin: 12/07/20 12:35 Dose: 25 mcg Documented by: Nalbuphine HCl (Nalbuphine 10 Mg/1 Ml Vial) 10 mg IVPUSH Q1H PRN PRN Reason: Pain (severe 7-10) Ondansetron HCl (Ondansetron 4 Mg/2 Ml Sdv) 4 mg IVPUSH Q6H PRN PRN Reason: Nausea/Vomiting Ropivacaine (Ropivacaine/Pf 400 Mg/200 Ml Manufacturing Engineer Chief) 400 mg EPIDUR ASDIRECTED EFE Sodium Chloride (Sodium Chloride 0.9% 10 Ml Syringe) 10 ml FLUSH ASDIRECTED PRN PRN Reason: Keep Vein Open Sodium Chloride (Sodium Chloride 0.9% 2.5 Ml Syringe) 2.5 ml FLUSH ASDIRECTED PRN PRN Reason: Keep Vein Open Sodium Chloride (Sodium Chloride 0.9% 10 Ml Sdv) 10 ml IV ASDIRECTED PRN PRN Reason: IV Use Sterile Water (Water For Irrigation,Sterile 1,000 Ml Container) 1,000 ml IRR ASDIRECTED PRN PRN Reason: delivery Terbutaline Sulfate (Terbutaline 1 Mg/Ml Sdv) 0.25 mg SUBCUT ASDIRECTED PRN PRN Reason: Tacysystole Discontinued Medications Ropivacaine (Naropin 0.2%) Confirm Administered Dose 200 mls @ as directed .ROUTE .[facility]-MED ONE Stop: 12/07/20 19:58 Influenza Virus Vaccine (Flu Vacc [id number](6mos Up)/Pf 60 Mcg/0.5 Ml Syringe) 60 mcg IM .ONCE ONE Stop: 12/07/20 09:01 - Exam General: Alert, Oriented Lungs: Normal Respiratory Effort Cardiovascular: Regular Rate GI/Abdominal Exam: Soft, Non-Tender Extremities: Normal Inspection Psy/Mental Status: Alert, Normal Affect, Normal Mood - Problem List & Annotations (1) Term delivered SNOMED Code(s): 26050865, 330175002 Code(s): O80 - ENCOUNTER FOR FULL-TERM UNCOMPLICATED DELIVERY Status: Acute Current Visit: Yes - Problem List Review Problem List Initiated/Reviewed/Updated: Yes - Plan Plan:: Nidia is a 25 yo G2 now P2002 s/p uncomplicated VD at 40 weeks gestation (TREVOR(LMP) 12/08/2020) after elective induction of labor. Mom and baby are doing well. P: Routine
[2020-12-08] MEDS ORDERED: Witch Hazel Medicated Pads 40/Jar TOP PRN (03:23)
[2020-12-08] MEDS ORDERED: Lanolin 100% Cream 7 GM Tube TOP PRN (03:23)
[2020-12-08] MEDS ORDERED: Ibuprofen 400 MG Tab PO PRN (03:23)
[2020-12-08] MEDS ORDERED: Acetaminophen 500 MG Tab PO PRN ×2 (03:23)
[2020-12-08] MEDS ORDERED: Bisacodyl 10 MG Supp RECTAL PRN (03:23)
[2020-12-08] MEDS ORDERED: Docusate Sodium 100 MG Cap PO PRN (03:23)
[2020-12-08] MEDS ORDERED: Benzocaine/Menthol 20%-0.5% Spray 78 GM Cannister TOP PRN (03:23)
[2020-12-08] MEDS: Ibuprofen 800 MG Tab PO PRN ×2 (05:18→14:01)
--- NOTE | 2020-12-08 07:26 | PCM48HPAN ---
Post Anesthesia Note - EVALUATION WITHIN 48HRS OF ANESTHETIC Vital Signs in Normal Range: Yes Patient Participated in Evaluation: Yes Respiratory Function Stable: Yes Airway Patent: Yes Cardiovascular Function Stable: Yes Hydration Status Stable: Yes Pain Control Satisfactory: Yes Nausea and Vomiting Control Satisfactory: Yes Mental Status Recovered: Yes Vital Signs: Last Vital Signs Temp 98.1 F 12/08/20 06:00 Pulse 79 12/08/20 06:00 Resp 20 12/08/20 06:00 BP 110/61 12/08/20 06:00 Pulse Ox 97 12/08/20 06:00
[2020-12-09] MEDS: Ibuprofen 800 MG Tab PO PRN ×2 (01:33→16:11)
[2020-12-09 08:21] VITALS: BP 112/64; PULSE 72
--- NOTE | 2020-12-09 09:36 | PCM.DCSUM1 ---
Discharge Summary - Hospital Course Diagnosis: Stroke: No - Discharge Data Discharge Date: 12/09/20 Discharge Disposition: Home, Self-Care 01 Condition: Good - Referral to Home Health Primary Care Physician: PCP None - Patient Instructions Diet: Usual Diet as Tolerated Activity: As Tolerated Driving: Do Not Drive Showering/Bathing: May Shower - Discharge Plan Home Medications: Home Meds . [No Known Home Meds] 12/07/15 [History] Referrals: [facility] [Outside] Marcia Mendoza MD [Physician] - 01/04/21 (4-week check.) - Discharge Summary/Plan Comment DC Time >30 min.: Yes Total # of Minutes for Discharge Time: 30 - General Info Date of Service: 12/09/20 Functional Status: Reports: Pain Controlled - Review of Systems General: Reports: No Symptoms HEENT: Reports: No Symptoms Pulmonary: Reports: No Symptoms Cardiovascular: Reports: No Symptoms Gastrointestinal: Reports: No Symptoms Genitourinary: Reports: No Symptoms Musculoskeletal: Reports: No Symptoms Skin: Reports: No Symptoms Neurological: Reports: No Symptoms Psychiatric: Reports: No Symptoms - Patient Data Vitals - Most Recent: Last Vital Signs Temp 36.2 C 12/09/20 08:00 Pulse 72 12/09/20 08:00 Resp 18 12/09/20 08:00 BP 112/64 12/09/20 08:00 Pulse Ox 97 12/09/20 08:00 Weight - Most Recent: 107.048 kg Lab Results - Last 24 hrs: Laboratory Results - last 24 hr 12/09/20 Range/Units 06:02 Hgb 10.8 L (12.0-16.0) g/dL Hct 31.8 L (36.0-46.0) % Med Orders - Current: Current Medications Acetaminophen (Acetaminophen 500 Mg Tab) 500 mg PO Q4H PRN PRN Reason: Pain (mild 1-3) Acetaminophen (Acetaminophen 500 Mg Tab) 1,000 mg PO Q4H PRN PRN Reason: Pain (mild 1-3) Benzocaine/Menthol (Benzocaine/Menthol 20%-0.5% Bostic 78 Gm Cannister) 78 gm TOP ASDIRECTED PRN PRN Reason: Perineal Comfort Measure Last Admin: 12/08/20 05:21 Dose: 1 spray Documented by: Bisacodyl (Bisacodyl 10 Mg Supp) 10 mg RECTAL ONETIME PRN PRN Reason: Constipation Butorphanol Tartrate (Butorphanol 1 Mg/Ml Sdv) 1 mg IVPUSH Q1H PRN PRN Reason: Pain (severe 7-10) Carboprost Tromethamine (Carboprost Tromethamine 250 Mcg/1 Ml Amp) 250 mcg IM ASDIRECTED PRN PRN Reason: Post Hemorrhage Docusate Sodium (Docusate Sodium 100 Mg Cap) 100 mg PO Q12H PRN PRN Reason: Constipation Last Admin: 12/08/20 14:01 Dose: 100 mg Documented by: Emollient Ointment (Lanolin 100% Cream 7 Gm Tube) 0 gm TOP ASDIRECTED PRN PRN Reason: Sore Nipples Last Admin: 12/08/20 05:21 Dose: 1 applic Documented by: Ephedrine Sulfate (Ephedrine 50 Mg/Ml Sdv) 10 mg IVPUSH Q5M PRN PRN Reason: Hypotension Ephedrine Sulfate (Ephedrine 50 Mg/Ml Sdv) 10 mg IVPUSH Q1M PRN PRN Reason: Hypotension Oxytocin/Sodium Chloride (Oxytocin 30 Unit In Ns 0.9% 500 Ml Premix) 30 unit in 500 mls @ 999 mls/hr IV TITRATE EFE Tranexamic Acid 1,000 mg/ (Sodium Chloride) 110 mls @ 660 mls/hr IV ONETIME PRN PRN Reason: Bleeding Oxytocin/Sodium Chloride (Oxytocin 30 Unit In Ns 0.9% 500 Ml Premix) 30 unit in 500 mls @ 2 mls/hr IV TITRATE [facility]; Protocol Last Titration: 12/08/20 01:04 Dose: 8 munits/min, 8 mls/hr Documented by: Lactated Ringer's (Ringers, Lactated) 1,000 mls @ 150 mls/hr IV ASDIRECTED EFE Last Admin: 12/07/20 21:30 Dose: 150 mls/hr Documented by: Ibuprofen (Ibuprofen 400 Mg Tab) 400 mg PO Q4H PRN PRN Reason: Pain (mild 1-3) Ibuprofen (Ibuprofen 800 Mg Tab) 800 mg PO Q6H PRN PRN Reason: Cramping Last Admin: 12/09/20 01:33 Dose: 800 mg Documented by: Lidocaine HCl (Lidocaine 1% 50 Ml Mdv) 50 ml INJECT ONETIME PRN PRN Reason: Laceration repair Methylergonovine Maleate (Methylergonovine 0.2 Mg/1 Ml Amp) 0.2 mg IM ASDIRECTED PRN PRN Reason: Post Hemorrhage Miscellaneous Medication (Phenylephrine Hcl In 0.9% Nacl 1 Mg/10 Ml Syringe) 0.1 mg IVPUSH Q1M PRN PRN Reason: Hypotension Misoprostol (Misoprostol 200 Mcg Tab) 200 mcg PO ONETIME PRN PRN Reason: Post Hemorrhage Misoprostol (Misoprostol 25 Mcg (1/4 Of 100 Mcg) Tab) 25 mcg VAG ONETIME PRN PRN Reason: Cervical Ripening Last Admin: 12/07/20 01:05 Dose: 25 mcg Documented by: Misoprostol (Misoprostol 25 Mcg (1/4 Of 100 Mcg) Tab) 25 mcg VAG Q4H PRN PRN Reason: Cervical Ripening Last Admin: 12/07/20 12:35 Dose: 25 mcg Documented by: Misoprostol (Misoprostol 25 Mcg (1/4 Of 100 Mcg) Tab) 25 mcg PO ONETIME PRN PRN Reason: Cervical Ripening Last Admin: 12/07/20 01:06 Dose: 25 mcg Documented by: Misoprostol (Misoprostol 25 Mcg (1/4 Of 100 Mcg) Tab) 25 mcg PO Q4H PRN PRN Reason: Cervical Ripening Last Admin: 12/07/20 12:35 Dose: 25 mcg Documented by: Nalbuphine HCl (Nalbuphine 10 Mg/1 Ml Vial) 10 mg IVPUSH Q1H PRN PRN Reason: Pain (severe 7-10) Ondansetron HCl (Ondansetron 4 Mg/2 Ml Sdv) 4 mg IVPUSH Q6H PRN PRN Reason: Nausea/Vomiting Ropivacaine (Ropivacaine/Pf 400 Mg/200 Ml Electric Accounting Machine Operator) 400 mg EPIDUR ASDIRECTED EFE Sodium Chloride (Sodium Chloride 0.9% 10 Ml Syringe) 10 ml FLUSH ASDIRECTED PRN PRN Reason: Keep Vein Open Sodium Chloride (Sodium Chloride 0.9% 2.5 Ml Syringe) 2.5 ml FLUSH ASDIRECTED PRN PRN Reason: Keep Vein Open Last Admin: 12/08/20 07:40 Dose: 2.5 ml Documented by: Sodium Chloride (Sodium Chloride 0.9% 10 Ml Sdv) 10 ml IV ASDIRECTED PRN PRN Reason: IV Use Sterile Water (Water For Irrigation,Sterile 1,000 Ml Container) 1,000 ml IRR ASDIRECTED PRN PRN Reason: delivery Terbutaline Sulfate (Terbutaline 1 Mg/Ml Sdv) 0.25 mg SUBCUT ASDIRECTED PRN PRN Reason: Tacysystole Witch Ana (Witch Ana Medicated Pads 40/Jar) 1 pad TOP ASDIRECTED PRN PRN Reason: comfort care Discontinued Medications Ropivacaine (Naropin 0.2%) Confirm Administered Dose 200 mls @ as directed .ROUTE .[facility] ONE Stop: 12/07/20 19:58 Influenza Virus Vaccine (Flu Vacc [id number](6mos Up)/Pf 60 Mcg/0.5 Ml Syringe) 60 mcg IM .ONCE ONE Stop: 12/07/20 09:01 - Exam General: Reports: Alert, Oriented HEENT: Reports: Pupils Equal, Pupils Reactive, EOMI, Mucous Membr. Moist/[place] Neck: Reports: Supple Lungs: Reports: Clear to Auscultation, Normal Respiratory Effort Cardiovascular: Reports: Regular Rate, Regular Rhythm GI/Abdominal Exam: Normal Bowel Sounds, Soft, Non-Tender, No Organomegaly, No Distention, No Abnormal Bruit, No Mass, Pelvis Stable (Female) Exam: Normal External Exam, Normal Speculum Exam, Normal Bimanual Exam Rectal (Female) Exam: Normal Exam, Normal Rectal Tone Back Exam: Reports: Normal Inspection, Full Range of Motion Extremities: Normal Inspection, Normal Range of Motion, Non-Tender, No Pedal Edema, Normal Capillary Refill Skin: Reports: Warm, Dry, Intact Wound/Incisions: Reports: Healing Well Neurological: Reports: No New Focal Deficit Psy/Mental Status: Reports: Alert, Normal Affect, Normal Mood
== END 2020-12-09 17:05 | disposition home or self-care (01) | DRG 807 ==
LOC: MW.OBCHECK 00:19 → MW.OB 00:19 → MW.OBCHECK 00:25 → MW.OB 00:25 → OBSVTOIN 12-08 02:49 → MW.OB 12-08 06:00
PROVIDERS: ADMIT Obstetrics & Gynecology; ATTEND Obstetrics & Gynecology
PROC: 10E0XZZ Delivery of Products of Conception, External Approach (ICD-10-PCS; principal; 2020-12-08)
PROC: 3E0P7VZ Introduction of Hormone into Female Reproductive, Via Natural or Artificial Opening (ICD-10-PCS; 2020-12-08)
PROC: 10907ZC Drainage of Amniotic Fluid, Therapeutic from Products of Conception, Via Natural or Artificial Opening (ICD-10-PCS; 2020-12-08)
PROC: 0HQ9XZZ Repair Perineum Skin, External Approach (ICD-10-PCS; 2020-12-08)
PROC: 3E0R3BZ Introduction of Anesthetic Agent into Spinal Canal, Percutaneous Approach (ICD-10-PCS; 2020-12-08)
DX: O77.0 Labor and delivery complicated by meconium in amniotic fluid (principal); Z37.0 Single live birth; O70.0 First degree perineal laceration during delivery; Z3A.40 40 weeks gestation of pregnancy
CPT/HCPCS: 01967; 36415; 59025; 59409; 85014; 85018; 85027; 86592; 86850; 86900; 86901; 90686; A9270-GY; G0008; J2590; J2795; J7120

== ENCOUNTER 2024-09-02 07:09 | Emergency (ER) | payer SELFPAY ==
[2024-09-02] MEDS ORDERED: Sodium Chloride 0.9% 2.5 ML Syringe FLUSH PRN ×2 (07:29→07:30)
[2024-09-02] MEDS ORDERED: Sodium Chloride 0.9% 10 ML Syringe FLUSH PRN ×2 (07:29→07:30)
[2024-09-02 07:36] LABS: BASOPHILS ABSOLUTE AUTO 0.01 K/uL (0.00-0.20); BASOPHILS PERCENT AUTO 0.2 % (0.0-1.0); EOSINOPHILS ABSOLUTE AUTO 0.03 K/uL (0.00-0.45); EOSINOPHILS PERCENT AUTO 0.5 % (0.0-6.0); IMMATURE GRAN ABSOLUTE AUTO 0.02 K/uL (0.00-0.05); IMMATURE GRAN PERCENT AUTO 0.3 % (0.0-0.4); LYMPHOCYTES ABSOLUTE AUTO 2.06 K/uL (1.00-4.80); LYMPHOCYTES PERCENT AUTO 32.9 % (24.0-44.0); MEAN PLATELET VOLUME 10.3 fL (9.4-12.3); MONOCYTES ABSOLUTE AUTO 0.40 K/uL (0.00-0.80); MONOCYTES PERCENT AUTO 6.4 % (0.0-8.0); NEUTROPHILS ABSOLUTE AUTO 3.74 K/uL (1.80-7.70); NEUTROPHILS PERCENT AUTO 59.7 % (41.0-71.0); NRBC ABSOLUTE 0.00 K/uL (0.00-0.02); NRBC PERCENT 0.0 /100WBC (0.0-0.2); PLATELET COUNT,PLT 185 K/uL (150-400); RED BLOOD CELL COUNT 4.66 M/uL (4.10-5.30); WHITE BLOOD CELL COUNT,WBC 6.26 K/uL (3.9-11.3)
[2024-09-02 08:11] LABS: A/G RATIO 1.1 (0.9-1.6); ALANINE AMINOTRANSFERASE,ALT 21 IU/L (14-63); ASPARTATE AMNIOTRANSFERASE,AST 9 IU/L (15-37); BILIRUBIN TOTAL 0.8 mg/dL (0.2-1.0); BLOOD UREA NITROGEN,BUN 9 mg/dL (7.0-18.0); CARBON DIOXIDE,CO2 28.9 mmol/L (21.0-32.0); CHLORIDE,CL 103 mmol/L (98-107); CREATININE 0.8 mg/dL (0.6-1.0); EST CRCL DRUG DOSING (CG) 106.48 mL/min; GLUCOSE RANDOM 95 mg/dL (74-106); POTASSIUM,K 3.9 mmol/L (3.5-5.1); PROTEIN TOTAL,TP 7.7 g/dL (6.4-8.2); SODIUM,NA 141 mmol/L (136-145); TSH ULTRASENSITIVE 1.73 uIU/mL (0.36-3.74)
[2024-09-02 08:12] LABS: ESTIMATED GFR 101 mL/min (>60)
[2024-09-02 08:13] LABS: LACTIC ACID 0.8 mmol/L (0.4-2.0)
[2024-09-02 08:25] LABS: APPEARANCE,URINE CLEAR; GLUCOSE,URINE NEGATIVE (NEGATIVE); OCCULT BLOOD,URINE NEGATIVE (NEGATIVE)
[2024-09-02 10:11] VITALS: BP 107/70; PULSE 87
== END 2024-09-02 10:09 | disposition home or self-care (01) ==
LOC: MW.ED 07:09
DX: B34.9 Viral infection, unspecified (principal); E86.0 Dehydration; E66.9 Obesity, unspecified; Z90.49 Acquired absence of other specified parts of digestive tract; Z68.28 Body mass index [BMI] 28.0-28.9, adult
CPT/HCPCS: 36415; 71045; 80053; 81003; 83605; 83690; 83735; 84443; 84484; 84703; 85025; 96360; 99284; J7030; 99283